=== PATIENT | female | born 1950 | race Caucasian/White ===

== ENCOUNTER 2021-08-07 18:48 | Emergency (ER) | payer MEDICARE ==
[~2021-08-07] VITALS: Ht 162.6 cm; Wt 68.9 kg
[2021-08-07 20:18] VITALS: BP 149/79
== END 2021-08-07 20:18 | disposition home or self-care (01) ==
LOC: FSED 19:06
DX: R33.9 Retention of urine, unspecified (principal); N32.89 Other specified disorders of bladder; F41.9 Anxiety disorder, unspecified; F32.9 Major depressive disorder, single episode, unspecified; E03.9 Hypothyroidism, unspecified
CPT/HCPCS: 99282

== ENCOUNTER 2022-06-22 10:57 | Observation (INO) | payer MEDICARE ==
[~2022-06-22] VITALS: Ht 162.6 cm; Wt 68.0 kg
[2022-06-22 12:00] LABS: BASOPHILS # (AUTO) 0.1 (0.0-0.1); EOSINOPHILS # (AUTO) 0.2 (0.0-0.4); EOSINOPHILS % 3.1 % (0.0-6.0); HEMATOCRIT 36.2 % (34.2-44.1); HEMOGLOBIN 11.2 g/dL (12.0-16.0); LYMPHOCYTES # (AUTO) 1.4 (1.0-3.2); LYMPHOCYTES % 23.2 % (18.0-39.1); MEAN CORPUSCULAR HEMOGLOBIN 30.9 pg (28-32); MEAN CORPUSCULAR HGB CONC 30.9 g/dL (31-35); MONOCYTES # (AUTO) 0.4 (0.2-0.8); NEUTROPHILS # (AUTO) 4.1 (2.1-6.9); NEUTROPHILS % 66.5 % (38.7-80.0); PLATELET COUNT 315 x10e3/uL (140-360); RED BLOOD COUNT 3.62 x10e6/uL (3.6-5.1); RED CELL DISTRIBUTION WIDTH 12.7 % (11.7-14.4)
[2022-06-22 12:17] LABS: INR 0.84; PROTHROMBIN TIME 12.3 seconds (11.9-14.5)
[2022-06-22 12:18] LABS: PARTIAL THROMBOPLASTIN TIME 25.8 seconds (23.8-35.5)
[2022-06-22 12:28] LABS: ALBUMIN 3.7 g/dL (3.5-5.0); ANION GAP 12.1 mmol/L (8-16); CALCIUM 9.8 mg/dL (8.4-10.2); CREATININE, SERUM 0.96 mg/dL (0.57-1.11); POTASSIUM 4.1 mmol/L (3.5-5.1)
[2022-06-22 12:34] LABS: CREATINE KINASE MB 3.9 ng/mL (0-5.0)
[2022-06-22 12:54] LABS: CLARITY,URINE CLEAR (CLEAR); COLOR,URINE YELLOW (YELLOW); KETONES,URINE NEGATIVE (NEGATIVE); LEUKOCYTE ESTERASE ,URINE NEGATIVE (NEGATIVE); NITRITE,URINE NEGATIVE (NEGATIVE); PROTEIN,URINE DIPSTICK NEGATIVE (NEGATIVE); URINE UROBILINOGEN 0.2 mg/dL (0.2 - 1)
[2022-06-22 13:08] LABS: BACTERIA,URINE RARE /HPF; EPITHELIAL CELLS,URINE RARE /LPF; WBC,URINE (MAN) 0-5 /HPF (0-5)
[2022-06-22] MEDS ORDERED: ASPIRIN 325 MG TAB PO ONE (13:45)
[2022-06-22] MEDS ORDERED: SODIUM CHLORIDE 0.9% 100 ML ONE (14:12)
[2022-06-22] MEDS ORDERED: IOPAMIDOL 370 MG/ML 100 ML INFUS..BTL INJ ONE (14:12)
[2022-06-22] MEDS ORDERED: ONDANSETRON HCL INJ 2MG/ML 2ML 2 MG/ML VIAL IV PRN (14:15)
[2022-06-22] MEDS ORDERED: SODIUM CHLORIDE FLUSH 10 ML SYR INJ PRN (14:15)
[2022-06-22] MEDS: CLOPIDOGREL BISULFATE 75 MG TAB PO SCH (15:18)
[2022-06-22 16:00] VITALS: BP 137/58
[2022-06-22 17:36] VITALS: BP 137/58
[2022-06-22 20:00] VITALS: BP 123/65
[2022-06-22] MEDS ORDERED: LAMOTRIGINE200 MG PO (20:44)
[2022-06-22] MEDS ORDERED: TRAZODONE HCL150 MG PO (20:44)
[2022-06-22] MEDS ORDERED: ATIVAN0.5 MG PO (20:44)
[2022-06-22] MEDS ORDERED: PANTOPRAZOLE SO40 MG PO (20:44)
[2022-06-22] MEDS ORDERED: ONDANSETRON ODT4 MG PO (20:44)
[2022-06-22] MEDS ORDERED: LEVOTHYROXINE75 MCG PO (20:44)
[2022-06-22] MEDS ORDERED: TRINTELLIX20 MG PO (20:44)
[2022-06-22] MEDS ORDERED: LEVOTHYROXINE88 MCG PO (20:46)
[2022-06-22 21:00] VITALS: BP 123/65
[2022-06-22] MEDS ORDERED: LAMOTRIGINE 100 MG TAB PO SCH (21:30)
[2022-06-22] MEDS ORDERED: TRAZODONE HCL 50 MG TAB PO SCH (21:30)
[2022-06-22] MEDS: LORAZEPAM 1 MG TAB PO SCH (22:04)
[2022-06-23] VITALS: BP 105/57
[2022-06-23 04:00] VITALS: BP 128/73
[2022-06-23 05:48] LABS: BASOPHILS # (AUTO) 0.1 (0.0-0.1); EOSINOPHILS # (AUTO) 0.3 (0.0-0.4); EOSINOPHILS % 5.1 % (0.0-6.0); HEMATOCRIT 33.4 % (34.2-44.1); HEMOGLOBIN 10.7 g/dL (12.0-16.0); LYMPHOCYTES % 33.1 % (18.0-39.1); MEAN CORPUSCULAR HEMOGLOBIN 31.1 pg (28-32); MEAN CORPUSCULAR VOLUME 97.1 fL (81-99); MONOCYTES # (AUTO) 0.5 (0.2-0.8); MONOCYTES % 8.1 % (4.4-11.3); NEUTROPHILS # (AUTO) 3.1 (2.1-6.9); NEUTROPHILS % 52.4 % (38.7-80.0); PLATELET COUNT 290 x10e3/uL (140-360); RED BLOOD COUNT 3.44 x10e6/uL (3.6-5.1); RED CELL DISTRIBUTION WIDTH 12.7 % (11.7-14.4)
[2022-06-23] MEDS ORDERED: LEVOTHYROXINE SODIUM 88 MCG TAB PO SCH (06:00)
[2022-06-23 06:16] LABS: ANION GAP 11.9 mmol/L (8-16); CALCIUM 9.2 mg/dL (8.4-10.2); CREATININE, SERUM 0.87 mg/dL (0.57-1.11); POTASSIUM 3.9 mmol/L (3.5-5.1)
[2022-06-23 06:20] LABS: CHOL/HDL RATIO 5.3 (3.0-3.6)
[2022-06-23 06:41] LABS: THYROID STIMULATING HORMONE 8.767 uIU/mL (0.350-4.940)
[2022-06-23 07:34] VITALS: BP 114/57
[2022-06-23 08:04] VITALS: BP 114/57
[2022-06-23] MEDS ORDERED: ASPIRIN 81 MG CHEW TAB PO SCH (09:00)
[2022-06-23] MEDS: CLOPIDOGREL BISULFATE 75 MG TAB PO SCH (09:29)
[2022-06-23] MEDS: LORAZEPAM 1 MG TAB PO SCH (09:30)
[2022-06-23] MEDS ORDERED: Atorvastatin PO (11:24)
[2022-06-23] MEDS ORDERED: ASPIRIN CHEW81 MG PO (11:24)
[2022-06-23] MEDS ORDERED: ACETAMINOPHEN 325 MG TAB PO PRN (11:45)
[2022-06-23 11:54] VITALS: BP 128/68
[2022-06-23] MEDS ORDERED: ATORVASTATIN 40 MG TAB PO SCH (21:00)
== END 2022-06-23 13:59 | disposition home or self-care (01) ==
LOC: ER 11:07 → ERHOLD 14:10 → INTOOBSV 14:10 → MED/SURG3 15:44
PROVIDERS: ADMIT Internal Medicine; ATTEND Internal Medicine
DX: G45.9 Transient cerebral ischemic attack, unspecified (principal); E03.9 Hypothyroidism, unspecified; Z20.822 Contact with and (suspected) exposure to COVID-19; I25.10 Atherosclerotic heart disease of native coronary artery without angina pectoris; Z79.52 Long term (current) use of systemic steroids
CPT/HCPCS: 36415; 70450; 70496; 70498; 70551; 71045; 80048; 80053; 80061; 81001; 82550; 82553; 82607; 83036; 84443; 84484; 85025; 85610; 85730; 87086; 93005; 93306; 99284; G0378; J7050; Q9967